=== PATIENT | male | born 2000 | race Caucasian/White ===

== ENCOUNTER 2024-01-08 00:12 | Emergency (ER) | payer OTHER, SELFPAY ==
--- OUTSIDE RECORDS SUMMARY | 2024-01-08 00:15 | XMS_ITS | Data Portability ---
Author Name Unknown Address [address] [place] [address] Phone [phone] Organization [facility], [facility] Address [address] [place] [address] Care Team Providers Care Recreation Therapy Director Name Role Phone LINDSAY BURNHAM Primary Care Provider Unavailabl e LINDSAY BURNHAM Referring Provider Unavailable Assessment Encounter Date Assessment Date Assessment LastModified by Organization Details LastModified Time 05/30/2021 05/30/2021 plantar fasciiti s - aggressive calf stretches - supportive shoes - orthotics - RICE - RBAs discussed re: cortisone injections Patient showed good understanding of etiology of deformity and treatment options available. Patient is aware that conservative options include NSAIDs, local injection, physical therapy, over the counter products, orthotics, and shoes Patient would benefit from a pair of custom orthotics L 3000 Medical necessity is failure of other conservative treatments patient has a deformity that warrants a custom device. Functional orthotics will help stabilize his gait and decrease the amount of hyperpronation that was observed during my gait exam. An orthotic will be placed in his shoe. An orthotic with a deep heel cup will hold the subtalar joint in a neutral position and at the same time support the midtarsal joint and first ray. By supporting the midtarsal joint and first ray it will decreased the excessive amount of pronation which was observed during my exam. Stabilizing the subtalar joint will also help to prevent reinjury further justification for functional orthotic can be found to evidence-based medicine stating that orthotic is an orthosis or brace is an external device applied to body parts to provide support or stabilization improved function by restricting or assisting motion correcting flexible deformities and preventing the progression of fixed deformities, or to reduce pressure and pain by by transferring the load from 1 area to another active range of motion muscle testing he was scanned for orthotics [email or web address] Not available 05/30/2021 23:25:19 Plan of Treatment Reminders Order Date Submit Date Provider Last Modified By Organization Details Last Modified Time Details Appointments None record ed. Lab None record ed. Referral None record ed. Procedures None record ed. Surgeries None record ed. Imaging None record ed. Medication Orders None record ed. Patient TargetsNo targets recorded. Patient InstructionsNo instructions recorded. Reason for Referral None Reported. Problems No Known Problems Medical Equipment None Reported. Allergies No known drug allergies Vitals Date Recorded Body height Body mass index (BMI) Body mass index (BMI) Percentile per age and sex Body weight Provider Name and Address Organization Details Last Updated DateTime 06/04/2021 177.8 cm 19.4 kg/m2 8 % 87785.97 g [place] [facility] 06/04/2021 13:13:53 Social History Question Answer Notes LastModified by [email or web address] Details LastModified Time Tobacco Smoking Status Never Smoker [place] [facility] 06/04/2021 13:14:10 What Is Your Relationship Status? Single Information not available 06/04/2021 Do You Use Any Illicit Or Recreational Drugs? No Information not available 06/04/2021 Has Tobacco Cessation Counseling Been Provided? No Information not available 06/04/2021 Do You Or Have You Ever Used Any Other Forms Of Tobacco Or Nicotine? No Information not available 06/04/2021 Sex: Male Functional Status Question Answer Note LastModified by [email or web address] Details LastModified Time Do you have difficulty walking or climbing stairs? No Information not available 06/04/2021 Are you able to walk? YESWOREST Information not available 06/04/2021 Are you able to care for yourself? Yes Information not available 06/04/2021 Do you have difficulty dressing or bathing? No Information not available 06/04/2021 Mental Status None recorded. Family History Relationship Description Onset Age of this Age Resolved Age Notes Father No current problems or disability Mother No current problems or disability Medical History No medical history recorded. Past Encounters Encounter ID Performer Location Encounter Start Date Encounter Closed Date Diagnosis/Indication Diagnosis SNOMED-CT Code [id number] Gen Farah DPM [facility] [address] [place] [address] 05/30/2021 17:53:25 05/30/2021 18:52:52 Plantar fasciitis [id number] Health Concerns Section Related Observation LastModified by Organization Detai ls LastModified Time None Recorded Concern Status LastModified by Organization Details LastModified Time None Recorded Advance Directives Directive None Recorded Payers Encounter Date Sequence Insurance Name Policy Number Policy Shay Covered Member ID Shay Member ID Guarantor Name 05/30/2021 1 [employer] - CHOICE (POS II) [id number] Naa Mcneil [id number] Chapin Lam Notes Date Note Type Note Provider Name and Address Organization Details Recorded Time 05/30/2021 text/html HPI Notes: 20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 Physical therapist application trainer is recommended orthotics Gen Farah DPM [facility] [address], [place], [address], [facility] 05/30/2021 23:25:59
--- OUTSIDE RECORDS SUMMARY | 2024-01-08 00:15 | XMS_ITS | Clinical Summary ---
Author Name Unknown Organization [facility] Address [place], [place] [address] Care Team Providers Care Chief Of Staff Doctor Name Role Phone Clinic, No Pcp Or Primary Care Provider Unavaila ble Allergies No known active allergies Medications Medication Sig Dispensed Refills Start Date End Date Status SUMAtriptan (IMITREX) 25 mg tablet take 1 tablet by mouth if needed for migraines headache may repea... (REFER TO PRESCRIPTION NOTES). 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 Chronic cough 04/21/2016 Rhinitis, chronic 04/21/2016 Immunizations Name Administration Dates Next Due COVID-19 vaccine ([employer] 30mcg/0.3mL) P F, MDV 08/14/2021 Influenza, IIV4 (=>6mos) MDV 06/12/2020 Influenza, Injectable, Mdck, Quadrivalent, W/preservative 07/09/2021 Social History Tobacco Use Types Packs/Day Years Used Date Smoking Tobacco: Never Smokeless Tobacco: Never Alcohol Use Standard Drinks/Week Comments Yes 0 (1 standard drink = 0.6 oz pur e alcohol) occassional Social Connections Answer Date Recorded Frequency of Communication with Friends and Fami ly Not on file 11/08/2021 Financial Resource Strain Answer Date R ecorded Difficulty of Paying Living Expenses Not on file 11/08/2021 Difficulty of Paying Living Expenses Not on file 11/08/2021 Sex and Gender Information Value Date Recorded Sex Assigned at Not on file Gender Identity Not on file Sexual Orientation Not on file Obstetrics History Last Filed Vital Signs Vital Sign Reading Time Taken Comments Blood Pressure 131/73 11/08/2021 3:48 PM STRUCTURAL WELDER Pulse 58 11/08/2021 3:48 PM STRUCTURAL WELDER Temperature - - Respiratory Rate - - Oxygen Saturation 100% 11/08/2021 3:48 PM STRUCTURAL WELDER Inhaled Oxygen Concentration - - Weight 65.3 kg (144 lb) 11/08/2021 3:48 PM STRUCTURAL WELDER Height 177.2 cm (5' 9.75) 11/08/2021 3:48 PM CS T Body Mass Index 20.81 11/08/2021 3:48 PM STRUCTURAL WELDER Plan of Treatment Upcoming Encounters Date Type Department Care Team ([facility] st Contact Info) Description 01/15/2024 9:55 AM CDT Office Visit [facility] [address] [place] [address] Geoff Le MD [address] [place] [address] Health Maintenance Due Date Last Done Comments Tdap 2012 Depression screening for age 12+ 2013 HIV for age 15-65 2016 HPV series for age 9-26 (1 - Male 3-dose series) 2016 Hepatitis C screening for ag e 18-79 2019 Tetanus booster 2021 BMI (ht and wt on same day) for age 18+ 11/08/2022 11/08/2021 COVID-19 vaccine series ( season) 2023 08/14/2021, 01/19/2021, 12/29/2020 Influenza for age 9-49 05/29/2024 , 06/12/2020 Pneumococcal series for age 6-64 Aged Out No longer eligible b ased on patient's age to complete this topic Care Teams Chief Of Staff Doctor Relationship Specialty Start Date End Date Clinic, No Pcp Or . PCP - General 11/05/21
[2024-01-08 00:18] VITALS: BP 132/84; PULSE 70; RESP 20; TEMP 36.7; O2SAT 99; BMI 20.8
--- NOTE | 2024-01-08 00:47 | XR_ITS ---
Patient: MATTIE Moore BURNSIDE Facility:?[facility] Patient ID:?[id number] Site Patient ID:?[id number]. Site :?[id number] Study:?XRay-Extremity Right THUMB 3V-01/08/2024 1:19:37 AM Ordering Physician:JAZ Final Report: Indication: Right thumb injury. Technique: 3 views of the right thumb. Comparison: None. Findings: Bones: Alignment is normal. No fractures or bone lesions. Joint spaces: Unremarkable. Soft tissues: Unremarkable. Impression: No evidence of an acute bony abnormality. Dictated by Eduard Pickens MD @ 01/08/2024 1:23:03 AM Signed by:?Eduard Pickens MD @01/08/2024 1:23:03 AM (Electronic Signature)
--- OUTSIDE RECORDS SUMMARY | 2024-01-08 00:55 | XMS_ITS | Clinical Summary ---
Author Name Unknown Organization [facility] Address [place], [place] [address] Care Team Providers Care Materials Research Engineer Name Role Phone Clinic, No Pcp Or [...] Name Administration Dates Next Due COVID-19 vaccine ([employer] 30mcg/0.3mL) P F, MDV 08/14/2021 Influenza, IIV4 [...] Comments Blood Pressure 131/73 11/08/2021 3:48 PM ELECTRIC SHIPYARD OPERATOR Pulse 58 11/08/2021 3:48 PM ELECTRIC SHIPYARD OPERATOR Temperature - - Respiratory Rate - - Oxygen Saturation 100% 11/08/2021 3:48 PM ELECTRIC SHIPYARD OPERATOR Inhaled Oxygen Concentration - - Weight 65.3 kg (144 lb) 11/08/2021 3:48 PM ELECTRIC SHIPYARD OPERATOR Height 177.2 cm (5' 9.75) 11/08/2021 3:48 PM CS T Body Mass Index 20.81 11/08/2021 3:48 PM ELECTRIC SHIPYARD OPERATOR Plan of Treatment Upcoming Encounters Date Type Department Care Team ([facility] st Contact Info) Description 01/15/2024 9:55 AM CDT Office Visit [facility] [address] [place] [address] Geoff Le MD [address] [place] [address] Health Maintenance Due Date Last Done Comments [...] age to complete this topic Care Teams Materials Research Engineer Relationship Specialty Start Date End Date Clinic, No Pcp Or . PCP - General 11/05/21
--- NOTE | 2024-01-08 01:33 | ED.UPPEXIN ---
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 He presents with pain in the right thumb. He denies pain in the wrist itself. There is no break in the skin and no bruising or swelling has developed yet. He denies other injuries. Related Data Home Medications Medication Instructions Recorded Confirmed No Known Home Medications 01/08/24 01/08/24 Allergies Allergy/AdvReac Type Severity Reaction Status Date / Time No Known Drug Allergies Allergy Verified 01/08/24 00:21 Review of Systems Narrative: Review of systems is outlined above otherwise noted to be negative. [facility] Medical History (Updated 01/08/24 @ 01:32 by Anthony Ruano MD) No significant past medical history Surgical History (Updated 01/08/24 @ 00:25 by Carlos Berry RN) No significant past surgical history Social History Smoking Status: Never smoker Second hand tobacco smoke exposure: No How often do you have a drink containing alcohol: never AUDIT-C Alcohol total score: 0 Non-prescribed substance use: denies use Exam Narrative: Exam Narrative: Vitals noted. He has full range of motion of the right wrist without pain. He has pain in the thenar eminence and CMC joint. No snuffbox tenderness. No ligamentous laxity. He is able to fully pronate and supinate the forearm. No pain at the elbow. Const: Vital Signs, click to edit/add: Vital Signs - 24 hr 01/08/24 00:18 01/08/24 02:08 01/08/24 02:09 Temperature 98.0 F 98.0 F 98.0 F Pulse Rate [Right Pulse Oximeter] 70 74 74 Respiratory Rate 20 20 20 Blood Pressure [Ri ght Upper Arm] 132/84 122/71 122/71 Pulse Oximetry 99 99 Oxygen Delivery Me thod Room Air Room Air Course Course ED Course: Patient was seen and examined. X-ray of the right thumb does not show a fracture. He was placed in a removable thumb spica splint. Vital Signs Vital signs: Initial Vital Signs Temperature 98.0 F 01/08/24 00:18 Temperature Source Temporal Artery Scan 01/08/24 00:18 Pulse Rate 70 01/08/24 00:18 Respiratory Rate 20 01/08/24 00:18 Blood Pressure 132/84 01/08/24 00:18 Blood Pressure Mean 100 01/08/24 00:18 Blood Pressure Position Sitting 01/08/24 00:18 Pulse Oximetry 99 01/08/24 00:18 Oxygen Delivery Method Room Air 01/08/24 00:18 Vital Signs Temperature 98.0 F 01/08/24 00:18 Pulse Rate 70 01/08/24 00:18 Respiratory Rate 20 01/08/24 00:18 Blood Pressure 132/84 01/08/24 00:18 Pulse Oximetry 99 01/08/24 00:18 Oxygen Delivery Method Room Air 01/08/24 00:18 Temperature 98.0 F 01/08/24 02:09 Pulse Rate 74 01/08/24 02:09 Respiratory Rate 20 01/08/24 02:09 Blood Pressure 122/71 01/08/24 02:09 Pulse Oximetry 99 01/08/24 02:08 Oxygen Delivery Method Room Air 01/08/24 02:08 Discharge Plan Discharge Clinical Impression: Sprain of right thumb Patient Disposition: Home, Self-Care Condition: Stable Additional Instructions: Rest, ice, elevate, wear the splint for the next 1-2 weeks. Ibuprofen 600 mg 3 times daily as needed for pain. Follow-up in the clinic if worsening or not improving. Prescriptions: No Action No Known Home Medications Follow Up/Referrals: Provider,Not a Local [Primary Care Provider] - Stand Alone [facility]
[2024-01-08 02:08] VITALS: BP 122/71; PULSE 74; RESP 20; TEMP 36.7; O2SAT 99
[2024-01-08 02:09] VITALS: BP 122/71; PULSE 74; RESP 20; TEMP 36.7
== END 2024-01-08 02:10 | disposition home or self-care (01) ==
PROVIDERS: Emergency Provider Family Medicine
DX: S63.601A Unspecified sprain of right thumb, initial encounter (principal); W19.XXXA Unspecified fall, initial encounter
CPT/HCPCS: 73140; 99282; 99283